=== PATIENT | female | born 1955 | race Caucasian/White ===

== ENCOUNTER 2024-10-12 09:43 | Inpatient (IN) ==
--- NOTE | 2024-09-10 15:07 | PAT Medication Instructions ---
Medication Instructions Date of Service September 10, 2024 Home Medications aspirin 81 mg tablet,delayed release 81 mg PO QAM buspirone 10 mg tablet 10 mg PO BID cholecalciferol (vitamin D3) 25 mcg (1,000 unit) capsule (Vitamin D3) 125 mcg PO DAILY duloxetine 30 mg capsule,delayed release 30 mg PO QAM duloxetine 60 mg capsule,delayed release 60 mg PO QAM insulin glargine 100 unit/mL (3 mL) subcutaneous pen (Lantus Solostar U-100 Insulin) 30 unit subcut HS lisinopril 10 mg-hydrochlorothiazide 12.5 mg tablet 1 tab PO QAM magnesium 200 mg tablet 200 mg PO HS meloxicam 7.5 mg tablet 7.5 mg PO QAM metformin 1,000 mg tablet 1,000 mg PO BID oxycodone-acetaminophen 5 mg-325 mg tablet (Percocet) 2 tab PO HS rosuvastatin 20 mg tablet (Crestor) 20 mg PO HS semaglutide 1 mg/dose (4 mg/3 mL) subcutaneous pen injector (Ozempic) 1 mg subcut Q7D MEDICATION INSTRUCTIONS: ASK your surgeon for instructions meloxicam 7.5 mg tablet 7.5 mg PO QAM ASK your prescriber and surgeon aspirin 81 mg tablet,delayed release 81 mg PO QAM DO NOT take the morning of surgery metformin 1,000 mg tablet 1,000 mg PO BID cholecalciferol (vitamin D3) 25 mcg (1,000 unit) capsule (Vitamin D3) 125 mcg PO DAILY lisinopril 10 mg-hydrochlorothiazide 12.5 mg tablet 1 tab PO QAM Take morning of surgery With a small sip of water, OTHERWISE NOTHING TO EAT OR DRINK AFTER MIDNIGHT: buspirone 10 mg tablet 10 mg PO BID duloxetine 30 mg capsule,delayed release 30 mg PO QAM duloxetine 60 mg capsule,delayed release 60 mg PO QAM Take evening before surgery buspirone 10 mg tablet 10 mg PO BID insulin glargine 100 unit/mL (3 mL) subcutaneous pen (Lantus Solostar U-100 Insulin) 30 unit subcut HS oxycodone-acetaminophen 5 mg-325 mg tablet (Percocet) 2 tab PO HS rosuvastatin 20 mg tablet (Crestor) 20 mg PO HS metformin 1,000 mg tablet 1,000 mg PO BID magnesium 200 mg tablet 200 mg PO HS Other Notes As per RN phone call, last dose to be 10/05/24 of: semaglutide 1 mg/dose (4 mg/3 mL) subcutaneous pen injector (Ozempic) 1 mg subcut Q7D If you have any questions please call us at [phone] or [phone] or [phone] or [phone]
--- NOTE | 2024-09-20 12:18 | Anesthesiology Consultation ---
Date of Service September 20, 2024 Assessment & Plan (1) Encounter for pre-operative examination: Plan - check BSG am DOS. - will request upcoming 09/28/24 [facility] cardiology office note. - will request upcoming 09/22/24 PCP pre-op evaluation and last carotid imaging, Shabana Rodriges [place] office note. - She reports hives with most surgeries including endoscopy, states she feels it is due to propofol but is unsure/denies formal testing. Last procedure 04/2023 partial nephrectomy-patient states is unsure if had any reaction. I offered if she would want formal allergy testing which she does not want to pursue. Case discussed in detail with Dr. Valdivia regarding patient reported hives with all recent surgeries and question if it is propofol. He advised that given no history of anaphylactic reaction, ultimate determination DOS will be to anesthesiologist determination/management DOS. - semaglutide: Patient informed at PAT visit to stop 7 days prior to surgery. Patient advised to check with prescriber to see if alternative diabetic management changes recommended while holding medication. Chart Review Chart Review: Pending: Refer to Additional Notes / Consult section and Patient seen in Pre Admission Testing Teaching & Discussion Pre-Anesthesia Teaching/Discussion Notes: Instructed NPO after midnight before surgery, except medications with 15 cc of water. Medication instructions provided according to the PAT guidelines. History Surgery Operation Date: 10/12/24 10:05 Proposed Procedures p L3-L5 Decompression and Fusion, Spinal Cord Monitoring - Yomi Beltran, Height/Weight Height: 5 ft 5 in Weight: 93 kg Allergies Allergy/AdvReac Type Severity Reaction Status Date / Time meperidine [From Demerol] Allergy Anaphylaxis Verified 09/10/24 10:49 metoclopramide [From Reglan] Allergy Anxiety Verified 09/10/24 10:49 neomycin Allergy red, Verified 09/10/24 10:49 swollen propofol Allergy Hives Verified 09/10/24 11:18 tioconazole Allergy Hives Verified 09/10/24 10:49 [From Monistat 1 (tioconazole)] Medications Home Medications Medication Instructions Recorded Confirmed Last Taken aspirin 81 mg tablet,delayed 81 mg PO QAM 09/10/24 09/10/24 Unknown release buspirone 10 mg tablet 10 mg PO BID 09/10/24 09/10/24 Unknown cholecalciferol (vitamin D3) 25 125 mcg PO DAILY 09/10/24 09/10/24 Unknown mcg (1,000 unit) capsule (Vitamin D3) duloxetine 30 mg capsule,delayed 30 mg PO QAM 09/10/24 09/10/24 Unknown release duloxetine 60 mg capsule,delayed 60 mg PO QAM 09/10/24 09/10/24 Unknown release insulin glargine 100 unit/mL (3 30 unit subcut HS 09/10/24 09/10/24 Unknown mL) subcutaneous pen (Lantus Solostar U-100 Insulin) lisinopril 10 1 tab PO QAM 09/10/24 09/10/24 Unknown mg-hydrochlorothiazide 12.5 mg tablet magnesium 200 mg tablet 200 mg PO HS 09/10/24 09/10/24 Unknown meloxicam 7.5 mg tablet 7.5 mg PO QAM 09/10/24 09/10/24 Unknown metformin 1,000 mg tablet 1,000 mg PO BID 09/10/24 09/10/24 Unknown oxycodone-acetaminophen 5 mg-325 2 tab PO HS 09/10/24 09/10/24 Unknown mg tablet (Percocet) rosuvastatin 20 mg tablet (Crestor) 20 mg PO HS 09/10/24 09/10/24 Unknown semaglutide 1 mg/dose (4 mg/3 mL) 1 mg subcut Q7D 09/10/24 09/10/24 Unknown subcutaneous pen injector (Ozempic) Past Medical History Medical History (Updated 09/20/24 @ 12:25 by Flori Amaral PA-C) Depression with anxiety Diabetes mellitus, type 2 IDDM History of anesthesia reaction 40 years ago, after woke up while they were stapling her skin 35 years ago, after second , could not speak for 8 hours also stated "when she had her endoscopy procedures at [facility], she always would get hives. she originally thought it may be from propofol, but said she never had any trouble with propofol with surgeries themselves." History of COVID-19 (~01/2023) denies hospitalization-resolved History of tachycardia cardiology monitoring, no current meds Hx of migraines Hx of renal cell cancer 2022, right partial nephrectomy Hx of thyroid cancer dx 2009, sx and radioactive iodine tx. Hyperlipidemia Hypertension controlled, stable per pt Sleep apnea non-compliant with CPAP Patient denies h/o stroke, seizures, heart attack, heart failure, blood clots/DVTs or blood transfusions. Exercise / Class Metabolic Activity II 4-5 Yardwork/Stairs/Walk up hill (walks up stairs slowly-shortness of breath walking up one flight of stairs ongoing for several years-denies worsening-notes improvement with intentional weight loss; denies chest discomfort) Past Surgical History Surgical History (Updated 09/20/24 @ 12:26 by Flori Amaral PA-C) History of dilatation and curettage x3 History of esophagogastroduodenoscopy (EGD) History of surgery right thumb Hx of bilateral cataract extraction Hx of section x2 Hx of colonoscopy 2019 Hx of partial nephrectomy 2022, right Hx of total thyroidectomy 2009 Hx of unilateral oophorectomy right, years ago Past Anesthesia History No Family Hx of Anesthesia Complications and Other (1984 [id number]; 1989 [id number] to speak for several hours-denies any head imaging or a ttributed cause) History of PONV No Hx of PONV and No Hx of Motion Sickness Social History Smoking Status: Never smoker Do You Dip or Chew Tobacco: No Hx Alcohol Use: Yes alcohol intake frequency: holidays/special occasions only Hx Substance Use: No substance use type: does not use Review of Systems Patient denies chest pain, shortness of breath, dyspnea on exertion, fever, chills, cough, wheezing, or palpitations. Physical Exam Vital Signs Vitals BP 115/76 P 97 TEMP 98.7 SP02 97% on RA RESP 19 Physical Patient resting comfortably in chair in no acute distress, alert and oriented, responding appropriately throughout visit Full cervical extension range of motion without pain TMD 3.5 finger breadths Mallampati Score 3 Dentition: intact, denies chipped or loose teeth, caps/crowns, implants or bridges Lungs: normal respiratory effort. Good air movement, clear throughout to auscultation, no adventitious breath sounds Cardiac: regular rate and rhythm, no murmurs noted Carotid arteries: negative bruit bilat Lab Results Anesthesia Preop Results Results Anesthesia Widget: WBC 9.15 K/ul (4.8-10.8) 09/20/24 Hgb 14.0 g/dl (12.0-16.0) 09/20/24 Hct 41.8 % (37.0-47.0) 09/20/24 Plt 300 K/uL (130-400) 09/20/24 Na 139 mmol/L (136-145) 09/20/24 K 4.3 mmol/L (3.5-5.1) 09/20/24 Cl 101 mmol/L (98-107) 09/20/24 CO2 34 mmol/L (21-32) H 09/20/24 BUN 25 mg/dl (6-23) H 09/20/24 Creat 0.97 mg/dl (0.6-1.2) 09/20/24 Glucose Level 98 mg/dl (70-99(Fasting)) 09/20/24 PT 10.9 Seconds (9.0-12.0) 09/20/24 PTT 27 Seconds (21-31) 09/20/24 INR 1.0 (0.9-1.1) 09/20/24 HA1c 6.5 % (4.5-5.6) H 09/20/24 Urine Color Yellow 09/20/24 Urine Appearance Clear (Clear) 09/20/24 Urine pH 5.5 (4.5-7.5) 09/20/24 Urine Specific Hewitt 1.017 (1.000-1.030) 09/20/24 Urine Protein Negative (Negative) 09/20/24 Urine Glucose (UA) Negative (Negative) 09/20/24 Urine Ketones Negative (Negative) 09/20/24 Urine Blood Negative (Negative) 09/20/24 Urine Nitrite Negative (Negative) 09/20/24 Urine Bilirubin Negative (Negative) 09/20/24 Urine Urobilinogen Negative (Negative) 09/20/24 Urine Leukocyte Esterase Negative (Negative) 09/20/24 Blood Type O Positive 09/20/24 Antibody Screen NEGATIVE 09/20/24 Testing Electrocardiogram Date: 09/20/24 Sinus tachycardia, rate 105 bpm Chest X-Ray Date: 09/20/24 No acute findings. Stress Test Date: 03/24/24 MPHR 86% Normal radiotracer uptake across all myocardial segments during both rest and stress imaging EF > 65%
[~2024-10-12 09:43] MED LIST: DEXAMETHASONE SOD INJ 4 MG/ML VIAL ONE; ETOMIDATE 2 MG/ML 20 ML VIAL IV ONE; GLYCOPYRROLATE 0.2 MG/ML VIAL ONE; LIDOCAINE 2% 2 ML VIAL/AMP(20MG/ML) INFIL ONE; MIDAZOLAM HCL 1 MG/ML 2ML VIAL ONE; ONDANSETRON INJ 2 MG/ML 2 ML VIAL ONE; ROCURONIUM BROMIDE 10 MG/ML 5 ML VIAL IV ONE; SUGAMMADEX SODIUM 200 MG/2 ML VIAL IV ONE; fentaNYL citrate PF 100 MCG/2 ML VIAL ONE
[2024-10-12] MEDS: ACETAMINOPHEN 500 MG TAB PO SCH (10:21)
[2024-10-12] MEDS: CeleBREX 200 MG CAP PO SCH (10:21)
[2024-10-12] MEDS: LR 60ML/HR IV SCH (10:21)
[2024-10-12] MEDS: GABAPENTIN 300 MG CAP PO SCH (10:21)
[2024-10-12] MEDS: LR 15ML/HR IV SCH (10:23)
[2024-10-12] MEDS ORDERED: DROPERIDOL 5 MG/2 ML VIAL IV PRN (10:57)
[2024-10-12] MEDS ORDERED: ePHEDrine sulfate 50 MG/ML AMP IV PRN (10:57)
[2024-10-12] MEDS ORDERED: ATROPINE SULFATE 0.1 MG/ML 10ML SYR IV PRN (10:57)
--- NOTE | 2024-10-12 11:09 | History & Physical Bridge Note ---
Date of Service October 12, 2024 History & Physical Bridge Note I have examined the patient, reviewed the History & Physical and in the interval since the performance of the History & Physical I have noted the following changes of clinical significance: no changes noted
--- NOTE | 2024-10-12 11:11 | History & Physical Report ---
Date of Service October 12, 2024 Assessment & Plan (1) Spondylolisthesis, lumbar region: Plan: L3-L5 decompression and fusion History of Present Illness Chief Complaint: All back and bilateral leg pain Primary Care Provider: NO PCP This is a 68-year-old female presents chronic system back and right leg pain and failing course of nonoperative care she is here for surgical invention. Allergies Allergy/AdvReac Type Severity Reaction Status Date / Time meperidine [From Demerol] Allergy Anaphylaxis Verified 10/12/24 10:04 metoclopramide [From Reglan] Allergy Anxiety Verified 10/12/24 10:04 neomycin Allergy red, Verified 10/12/24 10:04 swollen propofol Allergy Hives Verified 10/12/24 10:04 tioconazole Allergy Hives Verified 10/12/24 10:04 [From Monistat 1 (tioconazole)] Home Medications Medication Instructions Recorded Confirmed Type aspirin 81 mg tablet,delayed 81 mg PO QAM 09/10/24 10/12/24 History release buspirone 10 mg tablet 10 mg PO BID 09/10/24 10/12/24 History cholecalciferol (vitamin D3) 25 125 mcg PO DAILY 09/10/24 10/12/24 History mcg (1,000 unit) capsule (Vitamin D3) duloxetine 60 mg capsule,delayed 120 mg PO QAM 09/10/24 10/12/24 History release insulin glargine 100 unit/mL (3 30 unit subcut HS 09/10/24 10/12/24 History mL) subcutaneous pen (Lantus Solostar U-100 Insulin) lisinopril 10 1 tab PO QAM 09/10/24 10/12/24 History mg-hydrochlorothiazide 12.5 mg tablet magnesium 200 mg tablet 200 mg PO HS 09/10/24 10/12/24 History meloxicam 7.5 mg tablet 7.5 mg PO QAM 09/10/24 10/12/24 History metformin 1,000 mg tablet 1,000 mg PO BID 09/10/24 10/12/24 History oxycodone-acetaminophen 5 mg-325 2 tab PO HS 09/10/24 10/12/24 History mg tablet (Percocet) rosuvastatin 20 mg tablet (Crestor) 20 mg PO HS 09/10/24 10/12/24 History semaglutide 1 mg/dose (4 mg/3 mL) 1 mg subcut Q7D 09/10/24 10/12/24 History subcutaneous pen injector (Ozempic) diphenhydramine HCl 25 mg capsule 25 mg PO HS PRN sleep 10/12/24 10/12/24 History (Benadryl) levothyroxine 137 mcg tablet 137 mcg PO DAILY 10/12/24 10/12/24 History (Synthroid) omeprazole 20 mg tablet,delayed 20 mg PO BID 10/12/24 10/12/24 History release Past Med/Surg History Problem List (Updated 10/12/24 @ 11:10 by Yomi Beltran DO) Spondylolisthesis, lumbar region Encounter for pre-operative examination Medical History (Updated 10/12/24 @ 11:10 by Yomi Beltran DO) History of anesthesia reaction 40 years ago, after woke up while they were stapling her skin 35 years ago, after second , could not speak for 8 hours also stated "when she had her endoscopy procedures at [facility], she always would get hives. she originally thought it may be from propofol, but said she never had any trouble with propofol with surgeries themselves." Hx of renal cell cancer 2022, right partial nephrectomy Hx of thyroid cancer dx 2009, sx and radioactive iodine tx. Hx of migraines History of tachycardia cardiology monitoring, no current meds History of COVID-19 (~01/2023) denies hospitalization-resolved Sleep apnea non-compliant with CPAP Depression with anxiety Hypertension controlled, stable per pt Hyperlipidemia Diabetes mellitus, type 2 IDDM Surgical History History of surgery right thumb Hx of unilateral oophorectomy right, years ago History of dilatation and curettage x3 Hx of section x2 History of esophagogastroduodenoscopy (EGD) Hx of colonoscopy 2019 Hx of partial nephrectomy 2022, right Hx of total thyroidectomy 2010 Hx of bilateral cataract extraction Social History Smoking Status: Never smoker Second Hand Exposure: Yes (hx growing up); Do You Dip or Chew Tobacco: No; Tobacco Cessation Education Requested by Patient: No Hx Alcohol Use: Yes Hx Substance Use: No Preferred Language: [place] Communication Ability: Effective Technology Methodology Consultant Required: No Beliefs That Will Affect Care: None Current Living Situation: Spouse Other Information That Helps Us Care for You: No Feels Safe at Home: Yes Safety Concerns: Feels Safe At This Time Assistive Devices: Glasses Physical Exam Physical Exam: Patient is alert and oriented Heart regular rhythm Lungs clear Results & Data Results & Data Vital Signs (Past 12 Hours) Vital Signs Temp Pulse Resp BP Pulse Ox O2 Del Method 10/12/24 10:10 Room Air 10/12/24 10:10 37.1 C 117 H 20 139/93 97 Room Air
[2024-10-12] MEDS: ceFAZolin 2000MG 2,000 MG/15 ML SYR IV SCH ×2 (11:31→21:00)
[2024-10-12] MEDS ORDERED: fentaNYL citrate PF 100 MCG/2 ML VIAL ONE (12:01)
[2024-10-12] MEDS: BUPIVACAINE/EPINEPHRINE 0.25% 1:200,000 30 ML VIAL ONE (12:12)
[2024-10-12] MEDS: ceFAZolin 330 MG/ML 1 GM VIAL ONE (12:13)
[2024-10-12] MEDS ORDERED: PHENYLEPHRINE 100MCG/ML 5ML SYR ONE (12:40)
[2024-10-12] MEDS: FLOSEAL HEMOSTATIC MATRIX 10ML TOP ONE (13:39)
--- NOTE | 2024-10-12 13:48 | Operative Report ---
Post Operative Report Pre & Post Diagnosis Operation Date: 10/12/24 11:10 Pre-Op Diagnosis: #1 lumbar spondylosis with radiculopathy #2 lumbar spondylolisthesis with radiculopathy #3 lumbar spinal stenosis Post-Op Diagnosis: Same I identified the patient and participated in the time-out.: Yes Procedure Operation Date: 10/12/24 11:10 Actual Procedures #1 lumbar decompression bilaterally facetectomies and foraminotomies L2-L3, L3- L4 L4-L5. #2 posterior spinal fusion L3-L5. #3 placement posterior instrumentation L3-L5 using Zurita. #4 interbody fusion L3-L4 L4-5. #5 placement Spira limb by 26 mm of L3-L4 and 10 x 26 mm x 2 at L4-L5. #6 placement locally harvested morselized autograft in the posterior gutters. #7 placement infuse collagen sponge bath Koros in the posterior lateral gutters and os design and interbody space. #8 application of versa wrap of the exposed dura. Surgeon Yomi Beltran, DO Caddy Packer Vera Warren Estimated Blood Loss 300 Findings See Below The patient is 5 foot 6 weighing over 91 kg with a BMI in excess of 32. Patient's body habitus did contribute to significant technical difficulty with positioning exposure and the procedure itself adding at least 50% increased operative time. Specimens None Indications This is a 68-year-old female who presents publish diagnosis of failed course of nonoperative care is here for surgical invention. Description of Procedure Patient was met with identified informed consent obtained. Patient was then taken to the operative suite underwent intubation placed in a prone position on the Jayce table on top of the Asa frame. All bony prominences well-padded eyes inspected to ensure no external precipice upon them. This point the lumbar spine was prepped and draped in normal sterile fashion. Sharp dissection with the assistance of Bovie cautery performed down to and exposing the lamina transverse processes of L3 L4-5 bilaterally. From caudal to cephalad fashion complete laminectomy of L4 was performed including bilateral facetectomies and foraminotomies addressing severe subarticular and foraminal stenosis. This is followed by complete laminectomy of L3 with bilateral medial facetectomies and foraminotomies again addressing severe subarticular and foraminal stenosis. Lastly partial laminectomy of L2 with bilateral medial facetectomies to address all subarticular stenosis. Pedicle screws were then placed at L3 L4-5 bilaterally with assistance of fluoroscopy the process jabier placed. Bilateral transforaminal approach on the right discectomy of L4-L5 was performed endplates corrected to subcortical bleeding bone and a 10 x 26 mm spiral cage filled with os design bone graft tapped in position. Then proceeded to the left transforaminal region at L4-5. Again discectomy performed. Endplates guided to subcortical bleeding bone. A second 10 x 26 mm spiral cage filled with os designed tapped in position. Then proceeded to L3-L4 and by way of transforaminal approach on the left discectomy was performed endplates guided to subcortical main bone and 11 x 26 mm spiral cage filled with os design bone graft tapped in position. The rods were then compressed locked in final position bilaterally. The transverse processes of L3 L4-5 burred to subcortical bleeding bone. Infuse collagen sponge, with Koros and local autograft placed in the posterior gutters. 15 round SOLITARIO drain inserted. Versa wrap placed over exposed dura. Incision was then closed with 1 Vicryl the fascia 2-0 Vicryl subcutaneously and 4 Monocryl for final skin closure. Steri-Strips and sterile dressing placed. Patient waken taken PACU stable condition. Please note Vera Warren was present at the entire procedure involved the patient positioning complex portion of the surgery and final skin closure. I attest to the content of the Intraoperative Record and any orders documented therein. Any exceptions are noted below.
[2024-10-12] MEDS: HYDROmorphone INJ 2 MG/ML SYR/VIAL IV PRN (14:21)
--- NOTE | 2024-10-12 14:57 | Fluoroscopy Report ---
FL lumbar spine 2-3V CLINICAL HISTORY: L3-L5 DECOMPRESSION AND FUSION WITH INTERBODY COMPARISON STUDY: None FLUOROSCOPY TIME: 23 seconds FLUOROSCOPY IMAGES: 3 EXPOSURE DOSE: 21 mGy FINDINGS: Fluoroscopy was provided for lower lumbar decompression and fusion. IMPRESSION: Intraoperative fluoroscopy. ACT 112: Negative or not required by law. Electronically signed by: Sandro Zuñiga M.D. 10/12/2024 2:56 PM
--- NOTE | 2024-10-12 15:10 | Anesthesiology Progress Note ---
Date of Service October 12, 2024 Anesthesia Post Procedure Vital Signs Vital Signs: Temp Pulse Pulse Resp BP Pulse Ox O2 Del Method 10/12/24 15:00 36.6 C 103 H 17 125/71 99 Oxymask 10/12/24 14:50 99 H 12 122/70 99 Oxymask 10/12/24 14:40 100 H 12 118/70 96 Oxymask 10/12/24 14:30 96 H 19 118/72 96 Oxymask 10/12/24 14:20 98 H 15 117/63 98 Oxymask 10/12/24 14:10 99 H 15 108/68 98 Oxymask 10/12/24 14:01 36.4 C L 92 H 17 116/68 93 Oxymask 10/12/24 10:10 Room Air 10/12/24 10:10 37.1 C 117 H 20 139/93 97 Room Air O2 Flow Rate 10/12/24 15:00 2 10/12/24 14:50 4 10/12/24 14:40 6 10/12/24 14:30 6 10/12/24 14:20 8 10/12/24 14:10 10 10/12/24 14:01 10 10/12/24 10:10 10/12/24 10:10 Pain Intensity Bilateral Lower Back: Pain Intensity: 4 Transfer of Care Handoff Completed per policy Notes Mental Status: alert / awake / arousable and participated in evaluation Patient Amnestic to Procedure: Yes Nausea / Vomiting: adequately controlled Pain: adequately controlled Airway Patency, RR, SpO2: stable & adequate BP & HR: stable & adequate Hydration State: stable & adequate Anesthetic Complications: no major complications apparent and Pt Satisfied with anesthetic care
[2024-10-12] MEDS ORDERED: LORazepam 0.5 MG TAB PO PRN (15:30)
[2024-10-12] MEDS ORDERED: ACETAMINOPHEN 500 MG TAB PO PRN (15:30)
[2024-10-12] MEDS ORDERED: hydrOXYzine HCl 25 MG TAB PO PRN (15:30)
[2024-10-12] MEDS ORDERED: PHARMACY GLYCEMIC MGMT CONSULT PRN (15:30)
[2024-10-12] MEDS ORDERED: ALUMINUM/MAGNESIUM SUSP 30 ML UDC PO PRN (15:30)
[2024-10-12] MEDS ORDERED: bisacodyL 10 MG SUPP PR PRN (15:30)
[2024-10-12] MEDS ORDERED: NALOXONE HCL 0.4 MG/1 ML VIAL/CARP IV PRN (15:30)
[2024-10-12] MEDS ORDERED: HYDROmorphone INJ 0.5 MG/0.5 ML SYR IV PRN (15:30)
[2024-10-12] MEDS ORDERED: DO NOT ADMINISTER PNEUMOCOCCAL VACCINE PRN (15:30)
[2024-10-12] MEDS ORDERED: DO NOT ADMINISTER FLU VACCINE PRN (15:30)
[2024-10-12] MEDS ORDERED: LORazepam 2 MG/1 ML VIAL IV PRN (15:30)
[2024-10-12] MEDS ORDERED: ONDANSETRON INJ 2 MG/ML 2 ML VIAL IV PRN (15:30)
[2024-10-12] MEDS ORDERED: traMADol HCL 50 MG TABLET PO PRN (15:30)
[2024-10-12] MEDS ORDERED: MAGNESIUM HYDROXIDE SUSP 30 ML UDC PO PRN (15:30)
[2024-10-12] MEDS ORDERED: ONDANSETRON 4 MG OD TAB PO PRN (15:30)
[2024-10-12] MEDS ORDERED: ACETAMINOPHEN 1,000 MG/100 ML VIAL IV PRN (15:30)
[2024-10-12] MEDS ORDERED: SOD PHOSPHATE/SOD BIPHOSPHATE ENEMA 132 ML BTL PR PRN (15:30)
[2024-10-12] MEDS ORDERED: PROMETHAZINE 12.5 MG/50.5 ML BAG IV PRN (15:30)
[2024-10-12] MEDS ORDERED: FAMOTIDINE 20 MG TAB PO PRN (15:30)
[2024-10-12] MEDS ORDERED: diphenhydrAMINE Capsule 25 MG CAP PO PRN ×2 (15:30)
[2024-10-12] MEDS: oxyCODONE HCL IR 5 MG TAB (IMMEDIATE RELEASE) PO PRN (15:50)
--- NOTE | 2024-10-12 16:13 | Pharmacy Report ---
Pharmacy Glycemic Short Note 2 - Date of Service October 12, 2024 - Glycemic Short BSG Results (Last 24 hours): 10/12/24 10/12/24 10:12 14:09 POC Glucose 121 H 146 H OUTPATIENT ANTIDIABETIC REGIMEN: * Lantus 30 units SC HS * Metformin 1000 mg PO BIDM * Semaglutide 1 mg SC weekly (Tuesdays) HbA1c: 6.5% (09/20/24) ASSESSMENT: * ZG is a 68 year old female POD #0 s/p L3-L5 decompression/fusion * Received dexamethasone 8 mg IV x 1 in OR, ordered dexamethasone 6 mg IV daily x 3 days * Preop blood glucose of 121 mg/dL, postoperative blood glucoses of 146 and 176 mg/dL PLAN FOR INPATIENT GLYCEMIC CONTROL: * Hold outpatient oral diabetes medications * Basal insulin * Lantus 30 units SC x 1 * Reassess in AM * Bolus insulin * NovoLog per scale ACHS or Q6hrs while NPO * Goal Range: Low 110 mg/dL - High 140 mg/dL * Correction Factor: 20 mg/dL/unit * Nutritional / Prandial insulin per carb ratio of 1 unit per 7 grams CHO consumed
[2024-10-12] MEDS: INSULIN ASPART PER UNIT CHARGE SC SCH (17:28)
[2024-10-12] MEDS: LANTUS PER UNIT CHARGE SC ONE (17:38)
[2024-10-12] MEDS: HYDROmorphone INJ 1 MG/ML SYRINGE IV PRN (19:14)
--- NOTE | 2024-10-12 19:26 | Consultation ---
Date of Consultation October 12, 2024 Assessment & Plan (1) Spondylolisthesis, lumbar region: (2) Hx of renal cell cancer: (3) Hx of thyroid cancer: (4) Hypertension: (5) Hyperlipidemia: (6) Diabetes mellitus, type 2: (7) Sleep apnea: (8) Depression with anxiety: (9) History of tachycardia: Plan Ms. Murry is a 68 year old female that presented to the ED for an elective decompression and fusion surgery under the care of Dr. Beltran. Her PMH includes IDDM2, HTN, HLD, H/O renal cell carcinoma s/p R partial nephrectomy, h/o thyroid cancer s/p radioactive iodine, SUZANNE noncompliant with CPAP and depression with anxiety. She follows with Dr. Church for tachycardia which has been attributed to deconditioned state. She did get a stationary bike at home, but then fell and started to have issues with her back. Post operatively, she is doing well. She just received IV Dilaudid prior to visiting with me. She has a adam post op. 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 She tolerated her dinner without nausea. lumbar spondylosis with radiculopathy: POD#0 s/p decompression/fusion of L2-L3, L3-L4, L4-L5 under the care of Dr. Beltran. Per ortho for pain control, wound care, anticoagulation and activities. Monitor H&H, Pre op Hgb 3/3 14.0; trend in AM continue incentive spirometry; demonstrated appropriate use Monitor for flatulence and BM PT/OT when appropriate HTN: Chronic Takes Lisinopril/HCTZ; BP post op normalized; resume in AM Resting Sinus Tachycardia: at baseline, HR in low 100's no arrhythmia Follows with Dr. Church; suspect more related to deconditioning HLD: Chronic Takes rosuvastatin; continue Insulin-dependent diabetes type 2: Chronic Thanks 30 units nightly takes metformin at home; hold while inpatient Takes Ozempic q. 7 days; hold while here ACHS SSI while in patient History of thyroid cancer: Hypothyroidism: s/p radioactive iodine treatment in 2009 Follows with Endocrine Q6 mo takes Levothyroxine; continue SUZANNE: Non compliant on CPAP History of Renal cell Carcinoma: s/p R partial nephrectomy in 2022 CTAP yearly through her PCP Depression and anxiety: Chronic Takes Buspar; continue GERD: Chronic Takes omeprazole; continue Disposition: PCP: Valery Sloan PA-C with [facility] CODE STATUS: Full code VTE prophylaxis: Per admitting team Patient seen in collaboration with Dr. Henry. I spent a total of 58 minutes coordinating, documenting, and providing care for this patient excluding time spent inthe performance of separately billed services or time spent by another provider/QHP. Supervising Physician Co-Signing Physician Notes Pt seen and examined at bedside. She is stable post op day #0. She seems comfortable. She is a retired RN. I agree with the above AP documentation and agree with the plan. A total of 15 minutes spent with review and exam of the patient. History of Present Illness Requesting Physician: Dr. Beltran Reason for Consultation: Postop medical consultation Attending Physician: Yomi Beltran, History of Present Illness Ms. Murry is a 68 year old female that presented to the ED for an elective decompression and fusion surgery under the care of Dr. Beltran. Her PMH includes IDDM2, HTN, HLD, H/O renal cell carcinoma s/p R partial nephrectomy, h/o thyroid cancer s/p radioactive iodine, SUZANNE noncompliant with CPAP and depression with anxiety. She follows with Dr. Church for tachycardia which has been attributed to deconditioned state. She did get a stationary bike at home, but then fell and started to have issues with her back. Post operatively, she is doing well. She just received IV Dilaudid prior to visiting with me. She has a adam post op. 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 She tolerated her dinner without nausea. She reports that she follows with Endocrine every 6 months and she receives a CTAP yearly for monitoring of her renal cell carcinoma. Pt denies SMITH, dizziness, SOB, chest pain, palpitations, N/V/D. On examination, she is AAOx4 in no apparent distress. She has no adventitious lung sounds. She has Ax4 bowel sounds and is tachycardic, as outlined above, normal for her baseline. [facility] service was consulted for post operative medical consultation. Please see A/P for further details and thank you kindly for this consultation. Allergies Allergy/AdvReac Type Severity Reaction Status Date / Time meperidine [From Demerol] Allergy Anaphylaxis Verified 10/12/24 10:04 metoclopramide [From Reglan] Allergy Anxiety Verified 10/12/24 10:04 neomycin Allergy red, Verified 10/12/24 10:04 swollen propofol Allergy Hives Verified 10/12/24 10:04 tioconazole Allergy Hives Verified 10/12/24 10:04 [From Monistat 1 (tioconazole)] Home Medications Medication Instructions Recorded Confirmed Type aspirin 81 mg tablet,delayed 81 mg PO QAM 09/10/24 10/12/24 History release buspirone 10 mg tablet 10 mg PO BID 09/10/24 10/12/24 History cholecalciferol (vitamin D3) 25 125 mcg PO DAILY 09/10/24 10/12/24 History mcg (1,000 unit) capsule (Vitamin D3) duloxetine 60 mg capsule,delayed 120 mg PO QAM 09/10/24 10/12/24 History release insulin glargine 100 unit/mL (3 30 unit subcut HS 09/10/24 10/12/24 History mL) subcutaneous pen (Lantus Solostar U-100 Insulin) lisinopril 10 1 tab PO QAM 09/10/24 10/12/24 History mg-hydrochlorothiazide 12.5 mg tablet magnesium 200 mg tablet 200 mg PO HS 09/10/24 10/12/24 History meloxicam 7.5 mg tablet 7.5 mg PO QAM 09/10/24 10/12/24 History metformin 1,000 mg tablet 1,000 mg PO BID 09/10/24 10/12/24 History oxycodone-acetaminophen 5 mg-325 2 tab PO HS 09/10/24 10/12/24 History mg tablet (Percocet) rosuvastatin 20 mg tablet (Crestor) 20 mg PO HS 09/10/24 10/12/24 History semaglutide 1 mg/dose (4 mg/3 mL) 1 mg subcut Q7D 09/10/24 10/12/24 History subcutaneous pen injector (Ozempic) diphenhydramine HCl 25 mg capsule 25 mg PO HS PRN sleep 10/12/24 10/12/24 History (Benadryl) levothyroxine 137 mcg tablet 137 mcg PO DAILY 10/12/24 10/12/24 History (Synthroid) omeprazole 20 mg tablet,delayed 20 mg PO BID 10/12/24 10/12/24 History release oxycodone 5 mg tablet 5 mg PO Q6H PRN pain #30 tabs 10/12/24 10/12/24 Rx Patient History Medical History History of anesthesia reaction 40 years ago, after woke up while they were stapling her skin 35 years ago, after second , could not speak for 8 hours also stated "when she had her endoscopy procedures at [facility], she always would get hives. she originally thought it may be from propofol, but said she never had any trouble with propofol with surgeries themselves." Hx of renal cell cancer 2022, right partial nephrectomy Hx of thyroid cancer dx 2009, sx and radioactive iodine tx. Hx of migraines History of tachycardia cardiology monitoring, no current meds History of COVID-19 (~01/2023) denies hospitalization-resolved Sleep apnea non-compliant with CPAP Depression with anxiety Hypertension controlled, stable per pt Hyperlipidemia Diabetes mellitus, type 2 IDDM Surgical History History of surgery right thumb Hx of unilateral oophorectomy right, years ago History of dilatation and curettage x3 Hx of section x2 History of esophagogastroduodenoscopy (EGD) Hx of colonoscopy 2019 Hx of partial nephrectomy 2022, right Hx of total thyroidectomy 2009 Hx of bilateral cataract extraction Social History Smoking Status: Never smoker Second Hand Exposure: Yes (hx growing up); Do You Dip or Chew Tobacco: No; Tobacco Cessation Education Requested by Patient: No Hx Alcohol Use: Yes Hx Substance Use: No Preferred Language: Khmer Communication Ability: Effective [employer] Driver Required: No Beliefs That Will Affect Care: None Current Living Situation: Spouse Other Information That Helps Us Care for You: No Feels Safe at Home: Yes Safety Concerns: Feels Safe At This Time Assistive Devices: Glasses Review of Systems Review of Systems: Neuro: (-) Falls, trauma, slurred speech HEENT: (-) SMITH, dizziness, dysphagia, visual or auditory changes CV: (-) CP, palpitations, swelling Resp: (-) SOB GI: (-) appetite changes, N/V/D, bowel changes : (-) urinary changes Skin: (-) rashes Musculoskeletal: (+) bilateral peripheral neuropathy Psych: (-) anxiety, depression Physical Exam Physical Exam: Neuro: AAOx4, PERRLA, no aphagia, memory changes, CNII-XII grossly intact HEENT: head normocephalic, moist mucus membranes CV: S1/S2, (-) M/G/R, (-) edema, cap refill < 3 seconds Resp: Lungs CTA in all bruner. On RA GI: Abdomen S/NT/ND, Ax4 bowel sounds, (-) CVA tenderness Musculoskeletal: 5/5 B/L UE strength, 5/5 B/L LE strength. no gait disturbance at baseline; will use walker post op during recovery. Skin: (-) rashes , (-) erythema. Psych: euthymic mood Results & Data Vital Signs (Past 12 Hours) Vital Signs Temp Pulse Pulse Resp BP Pulse Ox O2 Del Method 10/12/24 18:24 36.4 C L 107 H 16 114/71 94 Room Air 10/12/24 17:45 36.4 C L 106 H 18 114/68 94 Room Air 10/12/24 16:29 36.5 C 104 H 16 105/68 95 Room Air 10/12/24 15:58 36.5 C 104 H 16 108/72 97 Room Air 10/12/24 15:25 36.6 C 105 H 17 122/70 97 Room Air 10/12/24 15:00 36.6 C 103 H 17 125/71 99 Oxymask 10/12/24 14:50 99 H 12 122/70 99 Oxymask 10/12/24 14:40 100 H 12 118/70 96 Oxymask 10/12/24 14:30 96 H 19 118/72 96 Oxymask 10/12/24 14:20 98 H 15 117/63 98 Oxymask 10/12/24 14:10 99 H 15 108/68 98 Oxymask 10/12/24 14:01 36.4 C L 92 H 17 116/68 93 Oxymask 10/12/24 10:10 Room Air 10/12/24 10:10 37.1 C 117 H 20 139/93 97 Room Air O2 Flow Rate 10/12/24 18:24 10/12/24 17:45 10/12/24 16:29 10/12/24 15:58 10/12/24 15:25 10/12/24 15:00 2 10/12/24 14:50 4 10/12/24 14:40 6 10/12/24 14:30 6 10/12/24 14:20 8 10/12/24 14:10 10 10/12/24 14:01 10 10/12/24 10:10 10/12/24 10:10
[2024-10-12] MEDS: busPIRone 5 MG TAB PO SCH (21:00)
[2024-10-12] MEDS: DOCUSATE SODIUM/SENNA 50/8.6MG TAB PO SCH (21:00)
[2024-10-12] MEDS ORDERED: NON-FORMULARY MEDICATION (Magnesium 200 mg Tablet) PO SCH (21:00)
[2024-10-12] MEDS: PANTOprazole 40 MG TAB PO SCH (21:01)
[2024-10-12] MEDS: ROSUVASTATIN CALCIUM 20 MG TAB PO SCH (21:02)
[2024-10-13] MEDS: POLYETHYLENE (MIRALAX) 17 GM PACK PO SCH (05:43)
[2024-10-13] MEDS: LEVOTHYROXINE SODIUM 137 MCG TABLET PO SCH (05:43)
[2024-10-13] MEDS: dexAMETHasone 6 MG in SYRINGE 0 ML IV SCH (08:20)
[2024-10-13] MEDS: LISINOPRIL/HCTZ 10/12.5MG TAB PO SCH (08:22)
[2024-10-13] MEDS: DULoxetine HCL 60 MG CAP PO SCH (08:22)
[2024-10-13] MEDS: ASPIRIN 81 MG ECTAB PO SCH (08:22)
[2024-10-13] MEDS: CHOLECALCIFEROL 25 MCG (1000 UNITS) TAB PO SCH (08:22)
--- NOTE | 2024-10-13 10:41 | Orthopedic Progress Note ---
Date of Service October 13, 2024 Assessment & Plan (1) Spondylolisthesis, lumbar region: Plan: Patient is going to continue with physical therapy monitor SOLITARIO output over the discharge home Friday. Admission and Anticipated Discharge Date Admission Date: October 12, 2024 Subjective Back pain is controlled leg pain improved Physical Exam Physical Exam: Patient is in bed. She is constricted testing. Is comfortable. Results & Data Vital Signs (Past 12 Hours) Vital Signs Temp Pulse Resp BP Pulse Ox O2 Del Method 10/13/24 06:34 36.8 C 94 H 16 112/71 95 Room Air 10/13/24 02:30 36.7 C 106 H 16 115/74 94 Room Air 10/12/24 22:48 36.8 C 110 H 16 111/65 93 Room Air Queries Orthopedic Spine Obesity: Yes
[2024-10-13 11:45] LABS: Basophils # (auto) 0.02 K/uL (0.00-0.20); Basophils % (auto) 0.1 %; Eosinophils # (auto) 0.02 K/uL (0.00-0.50); Eosinophils % (auto) 0.1 %; Hematocrit (blood only) 35.2 % (37.0-47.0); Hemoglobin 11.9 g/dl (12.0-16.0); Immature Granulocytes # (auto) 0.09 K/uL (0.01-0.20); Immature Granulocytes % (auto) 0.5 %; Lymphocytes # (auto) 0.99 K/uL (1.20-3.40); Lymphocytes % (auto) 5.9 %; Mean Corpuscular Hgb Conc 33.8 g/dL (32.0-36.0); Mean Corpuscular Volume 85.6 fL (80.0-100.0); Mean Platelet Volume 9.8 fL (9.4-12.4); Monocytes # (auto) 0.77 K/uL (0.11-0.59); Monocytes % (auto) 4.6 %; Neutrophils # (auto) 14.87 K/uL (1.40-6.50); Neutrophils % (auto) 88.8 %; Platelet Count 293 K/uL (130-400); RDW Standard Deviation 40.6 fL (36.4-46.3); Red Blood Count 4.11 M/uL (4.20-5.40); White Blood Count 16.76 K/ul (4.8-10.8)
[2024-10-13 11:55] LABS: BUN Creatinine Ratio 24.8 (10-20); Calcium 9.3 mg/dl (8.6-10.3); Creatinine Clr Calc Pharmacy 62.4 ml/min; Potassium 4.6 mmol/L (3.5-5.1)
--- NOTE | 2024-10-13 17:11 | Hospitalist Progress Note ---
Date of Service October 13, 2024 Assessment & Plan (1) Spondylolisthesis, lumbar region: (2) Hx of renal cell cancer: (3) Hx of thyroid cancer: (4) Hypertension: (5) Hyperlipidemia: (6) Diabetes mellitus, type 2: (7) Sleep apnea: (8) Depression with anxiety: (9) History of tachycardia: Plan Ms. Murry is a 68 year old female that presented to the ED for an elective decompression and fusion surgery under the care of Dr. Beltran. Her PMH includes IDDM2, HTN, HLD, H/O renal cell carcinoma s/p R partial nephrectomy, h/o thyroid cancer s/p radioactive iodine, SUZANNE noncompliant with CPAP and depression with anxiety. She follows with Dr. Church for tachycardia which has been attributed to deconditioned state. She did get a stationary bike at home, but then fell and started to have issues with her back. Post operatively, she is doing well. She just received IV Dilaudid prior to visiting with me. She has a adam post op. 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 She tolerated her dinner without nausea. lumbar spondylosis with radiculopathy: -POD#1 s/p decompression/fusion of L2-L3, L3-L4, L4-L5 under the care of Dr. Beltran. -Per ortho for pain control, wound care, anticoagulation and activities. -Monitor H&H, Pre op Hgb 3/3 14.0; trend in AM -continue incentive spirometry; demonstrated appropriate use -PT/OT when appropriate -give 1 L of LR at 80cc/hr given cocnern for dehydration HTN: -Chronic -Takes Lisinopril/HCTZ; BP post op normalized; resume in AM Resting Sinus Tachycardia: -at baseline, HR in low 100's -no arrhythmia -Follows with Dr. Church; suspect more related to deconditioning HLD: -Chronic -Takes rosuvastatin; continue Insulin-dependent diabetes type 2: -Chronic -30 units nightly takes metformin at home; hold while inpatient -Takes Ozempic q. 7 days; hold while here -ACHS SSI while in patient History of thyroid cancer: Hypothyroidism: -s/p radioactive iodine treatment in 2009 -Follows with Endocrine Q6 mo -takes Levothyroxine; continue SUZANNE: -Non compliant on CPAP History of Renal cell Carcinoma: -s/p R partial nephrectomy in 2022 -CTAP yearly through her PCP Depression and anxiety: -Chronic -Takes Buspar; continue GERD: -Chronic -Takes omeprazole; continue I spent a total of 40 minutes in direct patient care, including [id number] time with the patient and/or family, reviewing medical records, ordering and reviewing diagnostic tests, and coordinating care with other healthcare providers. This time includes: history taking, physical examination, medical decision making, counseling, ECG interpretation, imaging interpretation, lab interpretation, orders, and education, excluding time spent in the performance of separately billed services. Admission and Anticipated Discharge Date Admission Date: October 12, 2024 Subjective Patient seen and examined at bedside. Patient wants regular diet and feels her Protonix is not working for her reflux. Otherwise feels fine and tolerated procedure well. Review of Systems Review of Systems: Neuro: (-) Falls, trauma, slurred speech HEENT: (-) SMITH, dizziness, dysphagia, visual or auditory changes CV: (-) CP, palpitations, swelling Resp: (-) SOB GI: (-) appetite changes, N/V/D, bowel changes : (-) urinary changes Skin: (-) rashes Musculoskeletal: (+) bilateral peripheral neuropathy, chronic Psych: (-) anxiety, depression Physical Exam Physical Exam: Gen: A&O 3 NAD HEENT: NCAT, EOMI, not icteric. External ears normal. No rhinorrhea. Moist mucous membranes. Neck: Supple, full range of motion, no observable masses, No meningeal sign. Lungs: No Respiratory distress. CV: RRR, no edema. Abdomen: Soft, nondistended, No rebound tenderness. MSK: No joint swelling, no redness. Skin: No rashes, petechiae, lesions. Normal color per patient. Neuro: Normal Gait, Grossly intact. Psych: Appropriate for situation. Results & Data Results & Data Vital Signs (Past 12 Hours) Vital Signs Temp Pulse Pulse Resp BP Pulse Ox O2 Del Method 10/13/24 16:14 36.9 C 99 H 18 95/58 L 99 Room Air 10/13/24 12:52 36.7 C 97 H 17 104/68 95 Room Air 10/13/24 06:34 36.8 C 94 H 16 112/71 95 Room Air Laboratory Results -personally reviewed, leukocytosis of 17 post op could be reactive to procedure, Hgb drop post op noted, elevated BUN/creatinine ratio suggestive of dehydration Medications Administered Aspirin (Aspirin 81 Mg Ectab) 81 mg PO QAM [facility] Stop: 11/12/24 08:59 Last Admin: 10/13/24 08:22 Dose: 81 mg Documented By: DB Buspirone HCl (Buspirone 5 Mg Tab) 10 mg PO BID [facility] Stop: 11/11/24 20:59 Last Admin: 10/13/24 08:22 Dose: 10 mg Documented By: Admin: 10/12/24 21:00 Dose: 10 mg Documented By: CALI Duloxetine HCl (Duloxetine Hcl 60 Mg Cap) 120 mg PO [facility] Stop: 11/12/24 08:59 Last Admin: 10/13/24 08:22 Dose: 120 mg Documented By: DB Lisinopril/HCTZ (Lisinopril/Hctz 10/12.5mg Tab) 1 tab PO [facility] Stop: 11/12/24 08:59 Last Admin: 10/13/24 08:22 Dose: 1 tab Documented By: DB Hydromorphone HCl (Hydromorphone Inj 1 Mg/Ml Syringe) 1 mg IV Q3H PRN PRN Reason: SEVERE Pain (Scale 7,8,9,10) Stop: 10/26/24 15:29 Last Admin: 10/13/24 02:26 Dose: 1 mg Documented By: Admin: 10/12/24 19:14 Dose: 1 mg Documented By: TEENA Dexamethasone 6 mg/ Syringe 1.5 mls @ 1 mls/min IV DAILY [facility] Stop: 10/15/24 09:02 Last Admin: 10/13/24 08:20 Dose: 1 mls/min Documented By: DB Insulin Aspart (Insulin Aspart Per Unit Charge) 0 units SC ACHS [facility] Stop: 11/11/24 16:29 Last Admin: 10/13/24 16:56 Dose: 19 units Documented By: DB Co-signed By: CANDIS Admin: 10/13/24 12:18 Dose: 11 units Documented By: DB Co-signed By: HOLDEN Admin: 10/13/24 08:30 Dose: 9 units Documented By: DB Co-signed By: CANDIS Admin: 10/12/24 21:11 Dose: 5 units Documented By: CALI Co-signed By: PENG Admin: 10/12/24 17:28 Dose: 10 units Documented By: DB Co-signed By: CANDIS Levothyroxine Sodium (Levothyroxine Sodium 137 Mcg Tablet) 137 mcg PO DAILYBB [facility] Stop: 11/12/24 06:29 Last Admin: 10/13/24 05:43 Dose: 137 mcg Documented By: CALI Oxycodone HCl (Oxycodone Hcl Ir 5 Mg Tab (Immediate Release)) 5 - 10 mg PO Q4H PRN PRN Reason: Pain & Pre PT Stop: 10/26/24 15:29 Last Admin: 10/13/24 15:58 Dose: 10 mg Documented By: Admin: 10/13/24 08:19 Dose: 10 mg Documented By: Admin: 10/12/24 21:59 Dose: 10 mg Documented By: Admin: 10/12/24 15:50 Dose: 10 mg Documented By: DB Polyethylene Glycol (Polyethylene (Miralax) 17 Gm Pack) 17 gm PO Q6 [facility] Stop: 11/12/24 05:59 Last Admin: 10/13/24 17:00 Dose: 17 gm Documented By: Admin: 10/13/24 12:24 Dose: 17 gm Documented By: Admin: 10/13/24 05:43 Dose: 17 gm Documented By: CALI Rosuvastatin Calcium (Rosuvastatin Calcium 20 Mg Tab) 20 mg PO HS [facility] Stop: 11/11/24 20:59 Last Admin: 10/12/24 21:02 Dose: 20 mg Documented By: CALI Senna/Docusate Sodium (Docusate Sodium/Senna 50/8.6mg Tab) 2 tab PO HS [facility] Stop: 11/11/24 20:59 Last Admin: 10/12/24 21:00 Dose: 2 tab Documented By: CALI Vitamin D (Cholecalciferol 25 Mcg (1000 Units) Tab) 125 mcg PO DAILY [facility] Stop: 11/12/24 08:59 Last Admin: 10/13/24 08:22 Dose: 125 mcg Documented By: DB
[2024-10-13] MEDS: LACTATED RINGER'S 1,000 ML IV SCH (17:45)
[2024-10-13] MEDS: LANTUS PER UNIT CHARGE SC SCH (20:58)
[2024-10-13] MEDS: LANSOPRAZOLE 30 MG SOLTAB PO SCH (20:58)
[2024-10-14 05:44] LABS: Hematocrit (blood only) 32.1 % (37.0-47.0); Mean Corpuscular Hemoglobin 29.4 pg (25.0-34.0); Mean Corpuscular Hgb Conc 34.3 g/dL (32.0-36.0); Mean Corpuscular Volume 85.8 fL (80.0-100.0); Mean Platelet Volume 9.9 fL (9.4-12.4); Platelet Count 249 K/uL (130-400); RDW Coefficient of Variation 13.2 % (11.5-14.5); RDW Standard Deviation 41.1 fL (36.4-46.3); Red Blood Count 3.74 M/uL (4.20-5.40); White Blood Count 14.74 K/ul (4.8-10.8)
[2024-10-14 06:00] LABS: BUN Creatinine Ratio 27.8 (10-20); Potassium 4.4 mmol/L (3.5-5.1)
--- NOTE | 2024-10-14 08:32 | Orthopedic Progress Note ---
Date of Service October 14, 2024 Assessment & Plan (1) Spondylolisthesis, lumbar region: Plan: As needed is postoperative day 2 status post lumbar decompression and fusion L3- 5. Will continue with physical therapy today. She can apply ice to the right greater trochanter bursa region. Maintain SOLITARIO drain. Continue with physical therapy. DVT prophylaxis is in the form of teds and SCDs. Continue with aggressive bowel regimen. She can follow-up with Dr. Suero upon discharge regarding her bursitis. Anticipate discharge home tomorrow Admission and Anticipated Discharge Date Admission Date: October 12, 2024 Subjective Alejandra is postoperative day 2 status post L3-5 decompression and fusion. She has no radicular leg pain. Biggest complaint is right greater trochanter bursitis. She has had this in the past and received injections by Dr. Suero in [facility] but it has been quite sometime ago. She is passing flatus but no bowel movement. SOLITARIO drain output last shift was 70 cc. H&H this morning are 11.0 and 32.1 respectively. Yesterday in physical therapy ambulating 220 feet. Review of Systems Review of Systems: All systems reviewed & are unremarkable except as noted in HPI & below Physical Exam Physical Exam: She sitting in a chair eating breakfast in no acute distress alert and oriented x 3 strength is 5/5 bilateral lower extremities lumbar dressing is clean dry and intact with functioning SOLITARIO drain Tenderness over the right greater greater trochanter bursa to palpation Results & Data Vital Signs (Past 12 Hours) Vital Signs Temp Pulse Resp BP Pulse Ox O2 Del Method 10/14/24 07:48 37 C 96 H 18 118/72 99 Room Air 10/13/24 20:57 36.9 C 105 H 18 105/68 99 Room Air Queries Orthopedic Spine Obesity: Yes
[2024-10-14 14:41] VITALS: TEMP 98.1
--- NOTE | 2024-10-14 16:59 | Hospitalist Progress Note ---
Date of Service October 14, 2024 Assessment & Plan (1) Spondylolisthesis, lumbar region: (2) Hx of renal cell cancer: (3) Hx of thyroid cancer: (4) Hypertension: (5) Hyperlipidemia: (6) Diabetes mellitus, type 2: (7) Sleep apnea: (8) Depression with anxiety: (9) History of tachycardia: Plan Ms. Murry is a 68 year old female that presented to the ED for an elective decompression and fusion surgery under the care of Dr. Beltran. Her PMH includes IDDM2, HTN, HLD, H/O renal cell carcinoma s/p R partial nephrectomy, h/o thyroid cancer s/p radioactive iodine, SUZANNE noncompliant with CPAP and depression with anxiety. She follows with Dr. Church for tachycardia which has been attributed to deconditioned state. She did get a stationary bike at home, but then fell and started to have issues with her back. Post operatively, she is doing well. She just received IV Dilaudid prior to visiting with me. She has a adam post op. 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 She tolerated her dinner without nausea. lumbar spondylosis with radiculopathy: -POD#2 s/p decompression/fusion of L2-L3, L3-L4, L4-L5 under the care of Dr. Beltran. -Per ortho for pain control, wound care, anticoagulation and activities. -Monitor H&H, Pre op Hgb 3/3 14.0; trend in AM -continue incentive spirometry; demonstrated appropriate use -plan for discharge home likely tomorrow per ortho HTN: -Chronic -Takes Lisinopril/HCTZ Resting Sinus Tachycardia: -at baseline, HR in low 100's -no arrhythmia -Follows with Dr. Church; suspect more related to deconditioning HLD: -Chronic -Takes rosuvastatin; continue Insulin-dependent diabetes type 2: -Chronic -30 units nightly takes metformin at home; hold while inpatient -Takes Ozempic q. 7 days; hold while here -ACHS SSI while in patient History of thyroid cancer: Hypothyroidism: -s/p radioactive iodine treatment in 2009 -Follows with Endocrine Q6 mo -takes Levothyroxine; continue SUZANNE: -Non compliant on CPAP History of Renal cell Carcinoma: -s/p R partial nephrectomy in 2022 -CTAP yearly through her PCP Depression and anxiety: -Chronic -Takes Buspar; continue GERD: -Chronic -Takes omeprazole; continue I spent a total of 40 minutes in direct patient care, including [id number] time with the patient and/or family, reviewing medical records, ordering and reviewing diagnostic tests, and coordinating care with other healthcare providers. This time includes: history taking, physical examination, medical decision making, counseling, ECG interpretation, imaging interpretation, lab interpretation, orders, and education, excluding time spent in the performance of separately billed services. Admission and Anticipated Discharge Date Admission Date: October 12, 2024 Subjective Patient seen and examined at bedside. Doing well post op. States her pain is controlled. Labs improved after fluids. Review of Systems Review of Systems: Neuro: (-) Falls, trauma, slurred speech HEENT: (-) SMITH, dizziness, dysphagia, visual or auditory changes CV: (-) CP, palpitations, swelling Resp: (-) SOB GI: (-) appetite changes, N/V/D, bowel changes : (-) urinary changes Skin: (-) rashes Musculoskeletal: (+) bilateral peripheral neuropathy, chronic Psych: (-) anxiety, depression Physical Exam Physical Exam: Gen: A&O 3 NAD HEENT: NCAT, EOMI, not icteric. External ears normal. No rhinorrhea. Moist mucous membranes. Neck: Supple, full range of motion, no observable masses, No meningeal sign. Lungs: No Respiratory distress. CV: RRR, no edema. Abdomen: Soft, nondistended, No rebound tenderness. MSK: No joint swelling, no redness. Skin: No rashes, petechiae, lesions. Normal color per patient. Neuro: Normal Gait, Grossly intact. Psych: Appropriate for situation. Results & Data Results & Data Vital Signs (Past 12 Hours) Vital Signs Temp Pulse Resp BP Pulse Ox O2 Del Method 10/14/24 14:41 36.7 C 103 H 18 107/71 96 Room Air 10/14/24 07:48 37 C 96 H 18 118/72 99 Room Air Laboratory Results -personally reviewed, leukocytosis downtrended, Hgb relatively stable Medications Administered Aspirin (A[facility]in 81 Mg Ectab) [facility] [place] Stop: 11/12/24 08:59 Last Admin: 10/14/24 08:22 Dose: 81 mg Documented By: Admin: 10/13/24 08:22 Dose: 81 mg Documented By: RRPriya Buspirone HCl (Buspirone 5 Mg Tab) 10 mg PO BID [facility] Stop: 11/11/24 20:59 Last Admin: 10/14/24 08:21 Dose: 10 mg Documented By: Admin: 10/13/24 20:58 Dose: 10 mg Documented By: Admin: 10/13/24 08:22 Dose: 10 mg Documented By: Admin: 10/12/24 21:00 Dose: 10 mg Documented By: CALI Duloxetine HCl (Duloxetine Hcl 60 Mg Cap) 120 mg PO QAM [facility] Stop: 11/12/24 08:59 Last Admin: 10/14/24 08:23 Dose: 120 mg Documented By: Admin: 10/13/24 08:22 Dose: 120 mg Documented By: DB Lisinopril/HCTZ (Lisinopril/Hctz 10/12.5mg Tab) 1 tab PO QAM [facility] Stop: 11/12/24 08:59 Last Admin: 10/14/24 08:23 Dose: 1 tab Documented By: Admin: 10/13/24 08:22 Dose: 1 tab Documented By: RRPriya Hydromorphone HCl (Hydromorphone Inj 1 Mg/Ml Syringe) 1 mg IV Q3H PRN PRN Reason: SEVERE Pain (Scale 7,8,9,10) Stop: 10/26/24 15:29 Last Admin: 10/14/24 00:55 Dose: 1 mg Documented By: Admin: 10/13/24 02:26 Dose: 1 mg Documented By: Admin: 10/12/24 19:14 Dose: 1 mg Documented By: APR Dexamethasone 6 mg/ Syringe 1.5 mls @ 1 mls/min IV DAILY [facility] Stop: 10/15/24 09:02 Last Admin: 10/14/24 08:21 Dose: 1 mls/min Documented By: Admin: 10/13/24 08:20 Dose: 1 mls/min Documented By: DB Lactated Ringer's (Lr) 1,000 mls @ 80 mls/hr IV .[id number] [facility] Stop: 10/14/24 17:14 Last Admin: 10/14/24 06:50 Dose: Not Given Documented By: Infusion: 10/14/24 06:50 Dose: Infused Documented By: Admin: 10/13/24 17:45 Dose: 80 mls/hr Documented By: DB Insulin Aspart (Insulin Aspart Per Unit Charge) 0 units SC ACHS [facility] Stop: 11/11/24 16:29 Last Admin: 10/14/24 12:25 Dose: 13 units Documented By: ALCIRA Co-signed By: CANDIS Admin: 10/14/24 08:20 Dose: 7 units Documented By: ALCIRA Co-signed By: MAXIMINO Admin: 10/13/24 20:58 Dose: 9 units Documented By: CALI Co-signed By: TED Admin: 10/13/24 16:56 Dose: 19 units Documented By: DB Co-signed By: CANDIS Admin: 10/13/24 12:18 Dose: 11 units Documented By: DB Co-signed By: HOLDEN Admin: 10/13/24 08:30 Dose: 9 units Documented By: DB Co-signed By: CANDIS Admin: 10/12/24 21:11 Dose: 5 units Documented By: CALI Co-signed By: JOHNY Admin: 10/12/24 17:28 Dose: 10 units Documented By: DB Co-signed By: CANDIS Lansoprazole (Lansoprazole 30 Mg Soltab) 30 mg PO BID [facility] Stop: 11/12/24 20:59 Last Admin: 10/14/24 08:23 Dose: 30 mg Documented By: Admin: 10/13/24 20:58 Dose: 30 mg Documented By: CALI Levothyroxine Sodium (Levothyroxine Sodium 137 Mcg Tablet) 137 mcg PO DAILYBB [facility] Stop: 11/12/24 06:29 Last Admin: 10/14/24 05:35 Dose: 137 mcg Documented By: Admin: 10/13/24 05:43 Dose: 137 mcg Documented By: CALI Oxycodone HCl (Oxycodone Hcl Ir 5 Mg Tab (Immediate Release)) 5 - 10 mg PO Q4H PRN PRN Reason: Pain & Pre PT Stop: 10/26/24 15:29 Last Admin: 10/14/24 09:35 Dose: 10 mg Documented By: Admin: 10/14/24 05:34 Dose: 5 mg Documented By: Admin: 10/13/24 23:01 Dose: 10 mg Documented By: Admin: 10/13/24 15:58 Dose: 10 mg Documented By: Admin: 10/13/24 08:19 Dose: 10 mg Documented By: Admin: 10/12/24 21:59 Dose: 10 mg Documented By: Admin: 10/12/24 15:50 Dose: 10 mg Documented By: DB Polyethylene Glycol (Polyethylene (Miralax) 17 Gm Pack) 17 gm PO Q6 [facility] Stop: 11/12/24 05:59 Last Admin: 10/14/24 12:04 Dose: 17 gm Documented By: Admin: 10/14/24 05:35 Dose: 17 gm Documented By: Admin: 10/13/24 23:01 Dose: 17 gm Documented By: Admin: 10/13/24 17:00 Dose: 17 gm Documented By: Admin: 10/13/24 12:24 Dose: 17 gm Documented By: Admin: 10/13/24 05:43 Dose: 17 gm Documented By: CALI Rosuvastatin Calcium (Rosuvastatin Calcium 20 Mg Tab) 20 mg PO HS [facility] Stop: 11/11/24 20:59 Last Admin: 10/13/24 20:58 Dose: 20 mg Documented By: Admin: 10/12/24 21:02 Dose: 20 mg Documented By: CALI Senna/Docusate Sodium (Docusate Sodium/Senna 50/8.6mg Tab) 2 tab PO HS [facility] Stop: 11/11/24 20:59 Last Admin: 10/13/24 20:57 Dose: 2 tab Documented By: Admin: 10/12/24 21:00 Dose: 2 tab Documented By: CALI Vitamin D (Cholecalciferol 25 Mcg (1000 Units) Tab) 125 mcg PO DAILY [facility] Stop: 11/12/24 08:59 Last Admin: 10/14/24 08:22 Dose: 125 mcg Documented By: Admin: 10/13/24 08:22 Dose: 125 mcg Documented By: DB
[2024-10-14] MEDS: LANTUS PER UNIT CHARGE SC SCH (21:28)
[2024-10-15 06:34] LABS: Hematocrit (blood only) 32.9 % (37.0-47.0); Hemoglobin 11.1 g/dl (12.0-16.0); Mean Corpuscular Hemoglobin 29.1 pg (25.0-34.0); Mean Corpuscular Hgb Conc 33.7 g/dL (32.0-36.0); Mean Corpuscular Volume 86.1 fL (80.0-100.0); Mean Platelet Volume 10.4 fL (9.4-12.4); Platelet Count 280 K/uL (130-400); RDW Coefficient of Variation 13.2 % (11.5-14.5); RDW Standard Deviation 41.1 fL (36.4-46.3); Red Blood Count 3.82 M/uL (4.20-5.40); White Blood Count 11.35 K/ul (4.8-10.8)
[2024-10-15 06:59] LABS: BUN Creatinine Ratio 23.1 (10-20); Calcium 9.2 mg/dl (8.6-10.3); Creatinine Clr Calc Pharmacy 60.6 ml/min; Potassium 4.6 mmol/L (3.5-5.1)
[2024-10-15 07:24] VITALS: RESP 18; O2SAT 96
[2024-10-15 07:57] VITALS: BP 117/72
--- NOTE | 2024-10-15 09:52 | Discharge Summary ---
Date of Service October 15, 2024 Admission HPI Per Admitting Provider This is a 68-year-old female presents chronic system back and right leg pain and failing course of nonoperative care she is here for surgical invention. Principal Diagnosis Lumbar spondylolisthesis with radiculopathy Discharge Data Allergies Allergy/AdvReac Type Severity Reaction Status Date / Time meperidine [From Demerol] Allergy Anaphylaxis Verified 10/12/24 10:04 metoclopramide [From Reglan] Allergy Anxiety Verified 10/12/24 10:04 neomycin Allergy red, Verified 10/12/24 10:04 swollen propofol Allergy Hives Verified 10/12/24 10:04 tioconazole Allergy Hives Verified 10/12/24 10:04 [From Monistat 1 (tioconazole)] Consultations 10/12/24 15:30 Consult Hospitalist Routine Procedures Performed Operation Date: 10/12/24 11:10 Actual Procedures p L3-L5 Decompression and Fusion(Not Applicable) - Yomi Beltran DO Ordered Studies 10/12/24 10:05 FL lumbar spine 2-3V Routine Hospital Course (1) Spondylolisthesis, lumbar region: Patient with lumbar decompression fusion tolerated as well as taken orthopedic for postoperative. Postoperatively. She progressed appropriately. Marked improvement of her leg symptoms. Pain well-controlled. Excellent strength testing. SOLITARIO drain decreasing. Subsidy discharged home. Discharge orders instructions from the chart for further review. Total Time Total Time Spent Total Time Spent (In Minutes): 20 minutes Discharge Plan Discharge Items Patient Disposition: Home - Self-Care Reason For Visit: Two Level Lumbosacral Spondylosis Discharge Diagnosis: Lumbar spondylosis with radiculopathy Activity: As commented below Non-emergency contact: Primary Care Provider Call non-emergency contact if: you have any medication questions Follow-up/Referrals: PCP,NO [Physician] - Diet: Regular Addtl Attending Provider Instructions: ACTIVITY RECOMMENDATIONS: SELF CARE INSTRUCTIONS AFTER THORACIC/LUMBAR FUSIONS 1. You may walk to your tolerance. It is good exercise for your legs and back. Expect some back and intermittent leg aches and pains. 2. You may perform "counter-top" level activities (make a sandwich, demetria with a project, etc.). 3. No bending or lifting of more than 10 pounds or back twisting of any nature (roll like a log when turning in bed). 4. You may ride in a car for 20-30 minutes at a time. No driving until after your first visit with your doctor. 5. Frequent changes of position and restricting sitting to 30 minutes at a time will help limit the amount of back spasms and stiffness you may experience. 6. You may discontinue the use of ambulatory aids (cane, crutches, etc.) once your strength and confidence allow. 7. You may spanish interpreter the shower and let water strike your incision when you arrive home at least once daily. Do not take a tub bath, sit in a hot tub or go into a swimming pool until after your first recheck in the office. 8. You may resume previous diet. SPECIAL CARE INSTRUCTIONS: VERY IMPORTANT TO READ AND REVIEW A. Your surgical incision has been closed with a cosmetic suture under the skin that will dissolve in about 6 weeks. In 14 days, you can use a pair of clean scissors and cut the suture that is left outside of the skin at the ends of your incision. 1. The small skin tapes can be removed 7 days after surgery if they have not fallen off by that point. 2. You may keep the wound open to air as much as possible to promote healing after post-op day number 5 unless told otherwise by your doctor. 3. If you think the wound looks like it is becoming infected (redness or worsening drainage) and/or you are experiencing fever, chill or worsening back pain and muscle spasms, contact the office so that we may evaluate you as soon as possible. B. Complications are uncommon, but please contact us if you have any signs or symptoms of: 1. wound infection (fever higher than 102.5 degrees F, redness, separation of wound, drainage, or increasing pain from the incision) 2. blood clots in legs (pain, swelling, redness and warmth in legs) 3. urinary tract infection (fever higher than 102.5 degrees F, burning upon urination or increased frequency of urination) 4. nerve problems (inability to walk on your toes or heels, numbness, loss of bowel or bladder control) 5. any other symptoms that concern you C. Please call the office at if you have any concerns or ques tions about your operation or recovery. D. No smoking! Smoking drastically decreases the chance of a solid fusion. E. Do not take any anti-inflammatory medications (Indocin, Advil, Motrin, Aspirin, Naprosyn, etc.) as these may inhibit the chance of a solid fusion. Tylenol is okay to take for pain. MANAGING PAIN AFTER SPINAL SURGERY 1. Narcotic medication is intended for short-term use and will be provided for surgical pain. Surgical pain usually lasts for a period of 4-6 weeks. Narcotic medication includes Percocet, Vicodin, Darvocet, Tylenol #3 or Lortab. 2. Longer-term pain is more appropriately treated with non-narcotic medication such as Tylenol ES. 3. Muscle spasm is not appropriately treated with narcotics. Muscle relaxers such as Soma, Flexeril or Skelaxin can be used along with Tylenol ES. 4. Remember that we all live with some "aches and pains". This is not unusual or uncommon after an injury or as we get older. a. Back pain is expected and may include muscle spasms for 4 to 6 weeks after surgery. The pain should gradually improve. If the pain worsens for no apparent reason, please contact the office. b. Intermittent leg pain may also be experienced and should not be concerned about unless it worsens for no apparent reason. If so, please contact the office. 5. We will provide appropriate medication within the normal guidelines of their prescribed use. We will also be very cautious and aware of potential abuse and extended duration of patients' medication needs. a. Pain medications are for your comfort and to assist with sleep and rest so that the tissue can heal. They are not provided in order to return to normal activity and should not be used through the day. To do so or worsening pain at night can result from ongoing tissue damage and development of tolerance to the prescribed medicine. 6. Please allow 2-3 days to process refills. Prescriptions will not be mailed but must be picked up at the office. FOLLOW UP VISIT: Keep your scheduled follow-up appointment. Any questions, please call the office at . Pending Studies at Discharge: No Stand-Alone Forms: My [employer], Smoking Cessation Medications and DC Order Prescriptions: New oxycodone 5 mg tablet 5 mg PO Q6H PRN (Reason: pain) Qty: 30 0RF Continued aspirin 81 mg Tablet,Delayed Release (Dr/Ec) 81 mg PO QAM oxycodone-acetaminophen [Percocet] 5-325 mg Tablet 2 tab PO HS metformin [Glucophage] 1,000 mg Tablet 1,000 mg PO BID buspirone [BuSpar] 10 mg Tablet 10 mg PO BID lisinopril-hydrochlorothiazide 10-12.5 mg Tablet 1 tab PO QAM cholecalciferol (vitamin D3) [Vitamin D3] 25 mcg (1,000 unit) Capsule 125 mcg PO DAILY magnesium 200 mg Tablet 200 mg PO HS rosuvastatin [Crestor] 20 mg Tablet 20 mg PO HS duloxetine 60 mg Capsule,Delayed Release(Dr/Ec) 120 mg PO QAM insulin glargine [Lantus Solostar U-100 Insulin] 100 unit/mL (3 mL) Insulin Pen 30 unit SUBCUT HS Ozempic 1 mg/dose (4 mg/3 mL) Pen Injector 1 mg SUBCUT Q7D Patient Comments: friday diphenhydramine HCl [Benadryl] 25 mg Capsule 25 mg PO HS PRN (Reason: sleep) omeprazole 20 mg Tablet,Delayed Release (Dr/Ec) 20 mg PO BID levothyroxine [Synthroid] 137 mcg Tablet 137 mcg PO DAILY Discontinued meloxicam 7.5 mg Tablet 7.5 mg PO QAM Discharge Orders: Discharge Order (Routine); Ordered 10/15/24 Ordered By: Yomi Beltran Admission Data Admit Date/Time: 10/12/24 13:54 Attending Provider: Yomi Beltran Admit Provider: Yomi Beltran Primary Care Provider: Shabana Sloan Other Providers: Angélica Biswas
[2024-10-15 10:14] VITALS: PULSE 107
--- NOTE | 2024-10-15 17:25 | Hospitalist Progress Note ---
Date of Service October 15, 2024 Assessment & Plan (1) Spondylolisthesis, lumbar region: (2) Hx of renal cell cancer: (3) Hx of thyroid cancer: (4) Hypertension: (5) Hyperlipidemia: (6) Diabetes mellitus, type 2: (7) Sleep apnea: (8) Depression with anxiety: (9) History of tachycardia: Plan Ms. Murry is a 68 year old female that presented to the ED for an elective decompression and fusion surgery under the care of Dr. Beltran. Her PMH includes IDDM2, HTN, HLD, H/O renal cell carcinoma s/p R partial nephrectomy, h/o thyroid cancer s/p radioactive iodine, SUZANNE noncompliant with CPAP and depression with anxiety. She follows with Dr. Church for tachycardia which has been attributed to deconditioned state. She did get a stationary bike at home, but then fell and started to have issues with her back. Post operatively, she is doing well. She just received IV Dilaudid prior to visiting with me. She has a adam post op. 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 She tolerated her dinner without nausea. lumbar spondylosis with radiculopathy: -POD#3 s/p decompression/fusion of L2-L3, L3-L4, L4-L5 under the care of Dr. Beltran. -Per ortho for pain control, wound care, anticoagulation and activities. -continue incentive spirometry; demonstrated appropriate use -discharged today HTN: -Chronic -Takes Lisinopril/HCTZ Resting Sinus Tachycardia: -at baseline, HR in low 100's -no arrhythmia -Follows with Dr. Church; suspect more related to deconditioning HLD: -Chronic -Takes rosuvastatin; continue Insulin-dependent diabetes type 2: -Chronic -30 units nightly takes metformin at home; hold while inpatient -Takes Ozempic q. 7 days; hold while here -ACHS SSI while in patient History of thyroid cancer: Hypothyroidism: -s/p radioactive iodine treatment in 2009 -Follows with Endocrine Q6 mo -takes Levothyroxine; continue SUZANNE: -Non compliant on CPAP History of Renal cell Carcinoma: -s/p R partial nephrectomy in 2022 -CTAP yearly through her PCP Depression and anxiety: -Chronic -Takes Buspar; continue GERD: -Chronic -Takes omeprazole; continue I spent a total of 40 minutes in direct patient care, including [id number] time with the patient and/or family, reviewing medical records, ordering and reviewing diagnostic tests, and coordinating care with other healthcare providers. This time includes: history taking, physical examination, medical decision making, counseling, ECG interpretation, imaging interpretation, lab interpretation, orders, and education, excluding time spent in the performance of separately billed services. Admission and Anticipated Discharge Date Admission Date: October 12, 2024 Subjective Patient seen and examined before discharge. Patient walking hallways and doing well this morning. Feels well and wants to go home. Review of Systems Review of Systems: Neuro: (-) Falls, trauma, slurred speech HEENT: (-) SMITH, dizziness, dysphagia, visual or auditory changes CV: (-) CP, palpitations, swelling Resp: (-) SOB GI: (-) appetite changes, N/V/D, bowel changes : (-) urinary changes Skin: (-) rashes Musculoskeletal: (+) bilateral peripheral neuropathy, chronic Psych: (-) anxiety, depression Physical Exam Physical Exam: Gen: A&O 3 NAD HEENT: NCAT, EOMI, not icteric. External ears normal. No rhinorrhea. Moist mucous membranes. Neck: Supple, full range of motion, no observable masses, No meningeal sign. Lungs: No Respiratory distress. CV: RRR, no edema. Abdomen: Soft, nondistended, No rebound tenderness. MSK: No joint swelling, no redness, walking hallway Skin: No rashes, petechiae, lesions. Normal color per patient. Neuro: Normal Gait, Grossly intact. Psych: Appropriate for situation. Results & Data Results & Data Vital Signs (Past 12 Hours) Vital Signs Temp Pulse Pulse Pulse Resp BP Pulse Ox 10/15/24 10:12 36.7 C 88 99 H 107 H 18 117/72 96 10/15/24 07:56 117/72 10/15/24 07:22 36.7 C 88 18 90/54 L 96 O2 Del Method 10/15/24 10:12 10/15/24 07:56 10/15/24 07:22 Room Air Laboratory Results -personally reviewed, downtrended leukocytosis, stable Hgb, creatinine at baseline
--- NOTE | 2024-10-18 10:46 | Coding Query ---
BMI To promote full compliance with coding requirements relating to patient care, physician participation is requested in all cases of study manager uncertainty. Please assist us with the question(s) below: Please place an X within the parenthesis (x). If other, please document: BMI (33 ) was documented in this record for this patient. If the BMI is significant, please check the box that provides a more specific associated diagnosis: ( ) Overweight/Obese (x ) Obesity ( ) Morbid obesity ( ) Obesity Hypoventilation Syndrome (OHS) ( ) Heathy weight, not significant ( ) Underweight/Thin ( ) Other, please specify Thank you Sarah MACHADO
== END 2024-10-15 11:24 | disposition home or self-care (01) | DRG 428 ==
LOC: ASU 09:43 → 3E 13:54